=== PATIENT | female | born 1940 | race Caucasian/White ===

== ENCOUNTER 2016-10-05 00:05 | Emergency (ER) | payer MEDICARE, BC ==
[~2016-10-05] VITALS: Ht 165.1 cm; Wt 75.0 kg
[~2016-10-05 00:05] MED LIST: ATOR20TA PO; ESTR0.25 TP; MOME17SP MC
[2016-10-05] MEDS ORDERED: SODIUM CHLORIDE 0.9% 1,000ML IVBOLUS ONE (01:00)
[2016-10-05 01:06] LABS: HEMOGLOBIN 13.2 g/dL (11.7-16.4)
[2016-10-05 01:18] LABS: BLOOD UREA NITROGEN 13 mg/dL (7-18)
[2016-10-05] MEDS ORDERED: DILTIAZEM 5 MG/ML, 5ML ONE (01:21)
[2016-10-05 01:24] LABS: IS PT STATUS REG ER OR PRE ER? YES
[2016-10-05] MEDS ORDERED: DILTIAZEM 5 MG/ML, 5ML IVPush ONE (01:30)
[2016-10-05] MEDS ORDERED: DILTIAZEM 125 MG in DEXTROSE 5% 100 ML IV SCH (02:01)
[2016-10-05] MEDS ORDERED: MAGNESIUM SULFATE PMX 2GM/50ML 50 ML IVPB ONE (02:30)
[2016-10-05] MEDS ORDERED: ENOXAPARIN 80 MG/0.8 ML ONE (02:51)
[2016-10-05] MEDS ORDERED: ENOXAPARIN 80 MG/0.8 ML SQ ONE (03:00)
[2016-10-05 03:16] VITALS: BP 116/51
== END 2016-10-05 03:23 | disposition home or self-care (01) ==
LOC: ED 03:17
DX: I26.99 Other pulmonary embolism without acute cor pulmonale (principal); Z90.710 Acquired absence of both cervix and uterus; Z90.89 Acquired absence of other organs
CPT/HCPCS: 36415; 71275; 80048; 82040; 84484; 85025; 85520; 85610; 85730; 93005; 96361; 96372; 96374; 99285; J1650; J7030

== ENCOUNTER → 2016-12-14 | Outpatient (CLI) | payer MEDICARE, BC | END | disposition home or self-care (01) | LOC: CFH 14:04 | PROVIDERS: ATTEND Internal Medicine | DX: R22.43 Localized swelling, mass and lump, lower limb, bilateral (principal); I26.99 Other pulmonary embolism without acute cor pulmonale | CPT/HCPCS: 93970 ==

== ENCOUNTER 2017-01-30 13:59 | Emergency (ER) | payer MEDICARE, BC ==
[~2017-01-30] VITALS: Ht 162.6 cm; Wt 73.0 kg
[2017-01-30] MEDS ORDERED: DILTIAZEM 5 MG/ML, 5ML IVPush ONE (14:30)
[2017-01-30] MEDS ORDERED: SODIUM CHLORIDE FLUSH 10ML SYR IVF ONE (14:30)
[2017-01-30] MEDS ORDERED: SODIUM CHLORIDE 0.9% 1,000ML IVBOLUS ONE (14:30)
[2017-01-30] MEDS ORDERED: APIX2.5T PO (14:38)
[2017-01-30 14:43] LABS: ASPARTATE AMINO TRANSFERASE 30 U/L (15-37); BLOOD UREA NITROGEN 16 mg/dL (7-18)
[2017-01-30] MEDS ORDERED: DILTIAZEM 5 MG/ML, 5ML ONE (14:46)
[2017-01-30 14:52] LABS: IS PT STATUS REG ER OR PRE ER? YES
[2017-01-30] MEDS ORDERED: DILTIAZEM 60 MG TABLET PO ONE (16:30)
[2017-01-30 17:24] VITALS: BP 108/69
== END 2017-01-30 17:36 | disposition home or self-care (01) ==
LOC: ED 15:26
DX: I48.0 Paroxysmal atrial fibrillation (principal); Z79.01 Long term (current) use of anticoagulants
CPT/HCPCS: 36415; 71010; 80053; 83735; 83880; 84484; 85025; 85379; 85610; 85730; 93005; 96361; 96374; 99285; J7030

== ENCOUNTER → 2017-02-22 | Outpatient (CLI) | payer MEDICARE, BC ==
[~2017-02-22] MED LIST changes: +APIX2.5T PO
== END | disposition home or self-care (01) ==
LOC: CVU 11:59
PROVIDERS: ATTEND Internal Medicine Cardiovascular Disease
DX: I34.0 Nonrheumatic mitral (valve) insufficiency (principal); I48.0 Paroxysmal atrial fibrillation; I65.23 Occlusion and stenosis of bilateral carotid arteries; I34.1 Nonrheumatic mitral (valve) prolapse
CPT/HCPCS: 93306; 93880

== ENCOUNTER → 2020-10-06 | Outpatient (CLI) | payer MEDICARE, BC | END | disposition home or self-care (01) | LOC: CVU 09:33 | PROVIDERS: ATTEND Internal Medicine | DX: I86.8 Varicose veins of other specified sites (principal); I87.2 Venous insufficiency (chronic) (peripheral) | CPT/HCPCS: 93970 ==